=== PATIENT | female | born 1980 | race Caucasian/White ===

== ENCOUNTER 2016-09-05 18:20 | Emergency (ER) | payer BC ==
[~2016-09-05] VITALS: Ht 177.8 cm; Wt 60.0 kg
[~2016-09-05 18:20] MED LIST: METR-1 PO
[2016-09-05 18:22] VITALS: BP 134/81; PULSE 73; RESP 15; TEMP 98.1; O2SAT 97
[2016-09-05] MEDS ORDERED: SODIUM CHLOR 0.9% 1000 ML INJ 1,000 ML IV ONE (18:56)
[2016-09-05] MEDS ORDERED: METOCLOPRAMIDE HCL 10 MG/2 ML VIAL IVP ONE (19:00)
[2016-09-05] MEDS ORDERED: diphenhydrAMINE HCL 50 MG/ML VIAL IVP ONE (19:00)
[2016-09-05] MEDS ORDERED: KETOROLAC TROMETHAMINE 30 MG/ML (IVP) VIAL IVP ONE (19:00)
[2016-09-05 19:25] LABS: AUTOMATED NEUTROPHIL # 5.1 TH/MM3 (1.8-7.7); BASOPHIL % 0.5 % (0.0-2.0); EOSINOPHIL # 0.2 TH/MM3 (0-0.4); EOSINOPHIL % 2.2 % (0.0-4.0); HEMATOCRIT 40.5 % (35.0-46.0); HEMO FLAGS DIFF FINAL; LYMPH % 26.4 % (9.0-44.0); LYMPHOCYTE # 2.1 TH/MM3 (1.0-4.8); MEAN CELL VOLUME 94.5 FL (80.0-100.0); MEAN CORPUSCULAR HEMOGLOBIN 32.2 PG (27.0-34.0); MEAN CORPUSCULAR HGB CONC 34.1 % (32.0-36.0); MONO % 7.8 % (0.0-8.0); NEUT % 63.1 % (16.0-70.0); PLATELET COUNT 178 TH/MM3 (150-450); RED BLOOD COUNT 4.29 MIL/MM3 (4.00-5.30); RED CELL DISTRIBUTION WIDTH 13.8 % (11.6-17.2); WHITE BLOOD COUNT 8.1 TH/MM3 (4.0-11.0)
--- NOTE | 2016-09-05 19:53 | PD ---
HPI Chief Complaint: Headache Time Seen by Provider: 19:49 Travel History International Travel<30 days: No Contact w/Intl Traveler<30days: No Traveled to known affect area: No History of Present Illness HPI 36-year-old female that presents to the ED for evaluation of headache and inflamed lymph node on her right neck. Patient states that the inflamed lymph node has been there for a couple years. Per patient he comes and goes. Per patient today with the headache seems to be worsening. Per patient's been taking Motrin with minimal relief of the headache. Per patient she has a headache that feels like a pressure like a band on her head mainly on the left occipital head as well as on the right forehead. Per patient he feels like there is pressure behind the eyes. She states that she has photophobia. Denies any blurry vision or loss of vision. She denies any chest pain or shortness of breath. Denies any fevers chills or sweats. No runny nose or congestion. Denies . No allergies to medication. She has no seen anybody for this. She does state having a history of headaches in the past but nothing like this before. Per patient the pain is 7 out of 10. Nothing makes it better. Light makes it worse however. She denies any nausea or vomiting. no Abdominal pain. No urinary or bowel movement issues. PFSH Past Medical History Medical History: Denies Significant Hx Diabetes: No Diminished Hearing: No Tetanus Vaccination: > 5 Years Influenza Vaccination: No ?: Not LMP: 08/2016 : 3 Para: 3 Ovarian Cysts: Yes Past Surgical History Gynecologic Surgery: Yes (cryo) Other Surgery: Yes (BREAST AUGMENTATION) Social History Alcohol Use: Yes (OCCASS) Tobacco Use: No Substance Use: No Allergies-Medications (Allergen,Severity, Reaction): Coded Allergies: No Known Allergies (Verified , 09/05/16) Reported Meds & Prescriptions Reported Meds & Active Scripts Active Diclofenac Sodium DR (Diclofenac Sodium) 75 Mg Tabdr 75 Mg PO BID PRN Prochlorperazine Maleate 10 Mg Tab 10 Mg PO Q6H PRN Review of Systems Except as stated in HPI: all other systems reviewed are Neg Physical Exam Narrative GENERAL: SKIN: Warm and dry. HEAD: Atraumatic. Normocephalic. EYES: Pupils equal and round 4 mm reactive to light and accommodation. No scleral icterus. No injection or drainage. ENT: No nasal bleeding or discharge. Mucous membranes pink and moist. Tongue is midline. No uvula deviation. Tonsils not enlarged or swollen. TMs are clear without sign of infection or perforation. No mastoid tenderness. Patient does have what appears to be a small inflamed lymph node on the right anterior cervical node which is slightly tender. Mobile. Hard to the touch. NECK: Trachea midline. No JVD. CARDIOVASCULAR: Regular rate and rhythm. No murmurs, S3, S4. RESPIRATORY: No accessory muscle use. Clear to auscultation. Breath sounds equal bilaterally. GASTROINTESTINAL: Abdomen soft, non-tender, nondistended. Hepatic and splenic margins not palpable. MUSCULOSKELETAL: Extremities without clubbing, cyanosis, or edema. No obvious deformities. Full range of motion of the upper and lower extremities bilaterally. 2+ pulses bilaterally. NEUROLOGICAL: Awake and alert. No obvious cranial nerve deficits. Motor grossly within normal limits. Five out of 5 muscle strength in the arms and legs. Normal speech. PSYCHIATRIC: Appropriate mood and affect; insight and judgment normal. Data Data Last Documented VS Vital Signs Date Time Temp Pulse Resp B/P Pulse Ox O2 Delivery O2 Flow Rate FiO2 09/05/16 20:30 84 16 134/78 99 Room Air 09/05/16 18:22 98.1 Orders Complete Blood Count With Diff (09/05/16 18:56) Basic Metabolic Panel (Bmp) (09/05/16 18:56) Ct Brain W/O Iv Contrast(Rout) (09/05/16 18:56) Iv Access Insert/Monitor (09/05/16 18:56) Ketorolac Inj (Toradol Inj) (09/05/16 19:00) Diphenhydramine Inj (Benadryl Inj) (09/05/16 19:00) Metoclopramide Inj (Reglan Inj) (09/05/16 19:00) Sodium Chlor 0.9% 1000 Ml Inj (Ns 1000 M (09/05/16 18:56) Influenzae A/B Antigen (09/05/16 18:56) Ed Urine Pregnancytest Poc (09/05/16 19:10) Electrocardiogram (09/05/16 21:03) Potassium, Serum (K) (09/05/16 21:03) Labs Laboratory Tests Test 09/05/16 09/05/16 19:00 21:10 White Blood Count 8.1 TH/MM3 Red Blood Count 4.29 MIL/MM3 Hemoglobin 13.8 GM/DL Hematocrit 40.5 % Mean Corpuscular Volume 94.5 FL Mean Corpuscular Hemoglobin 32.2 PG Mean Corpuscular Hemoglobin 34.1 % Concent Red Cell Distribution Width 13.8 % Platelet Count 178 TH/MM3 Mean Platelet Volume 11.3 FL Neutrophils (%) (Auto) 63.1 % Lymphocytes (%) (Auto) 26.4 % Monocytes (%) (Auto) 7.8 % Eosinophils (%) (Auto) 2.2 % Basophils (%) (Auto) 0.5 % Neutrophils # (Auto) 5.1 TH/MM3 Lymphocytes # (Auto) 2.1 TH/MM3 Monocytes # (Auto) 0.6 TH/MM3 Eosinophils # (Auto) 0.2 TH/MM3 Basophils # (Auto) 0.0 TH/MM3 CBC Comment DIFF FINAL Differential Comment Sodium Level 137 MEQ/L Potassium Level 5.7 MEQ/L 4.2 MEQ/L Chloride Level 105 MEQ/L Carbon Dioxide Level 23.6 MEQ/L Anion Gap 8 MEQ/L Blood Urea Nitrogen 11 MG/DL Creatinine 0.68 MG/DL Estimat Glomerular Filtration 99 ML/MIN Rate Random Glucose 78 MG/DL Calcium Level 8.7 MG/DL [facility] Medical Decision Making Medical Screen Exam Complete: Yes Emergency Medical Condition: Yes Medical Record Reviewed: Yes Interpretation(s) CBC & BMP Diagram 09/05/16 19:[address] 09/05/16 [id number] Signed Impressions: Service Date/Time: Monday, September 05, 2016 20:06 - CONCLUSION: Unremarkable CT brain. Navi Wade MD influenza negative recheck k was normal Differential Diagnosis Migraine headache versus tension headache versus sinus headache versus lymphadenopathy versus infection versus sinusitis Narrative Course 36-year-old female that presents to the ED for evaluation of headache and inflamed lymph node. Patient was properly examined and was found to have signs and symptoms consistent with appears to be likely tension headache versus migraine headache. I also inflamed lymph node. Patient has never had headaches like this before. Lymph node has been ongoing problem and I do not believe the patient has an acute from this. Labs and imaging as well as pain medication. Patient agrees first to proceed. Labs and imaging showed no sign of acute disease. Patient was reassessed and does feel improved. Case was discussed with my attending Dr. Tavarez evaluated the patient with me and recommends discharge. Patient will be discharged with diclofenac sodium and Compazine for his headache. Patient was told to follow up with PCP. See ED for worsening symptoms. Diagnosis Primary Impression: Headache Qualified Code: G44.209 - Acute non intractable tension-type headache Additional Impression: Lymph nodes enlarged Patient Instructions: General Instructions Additional Instructions: Motrin or Tylenol for pain. Take medication only for approximately needed. See ED if worsening symptoms. Follow-up with PCP. Med/Other Pt SpecificInfo: Prescription(s) given Scripts Diclofenac Sodium DR 75 Mg Tabdr75 Mg PO BID PRN (PAIN SCALE 1 TO 10) #20 TAB Prov:Sharath Guan MD 09/05/16 Prochlorperazine Maleate 10 Mg Tab10 Mg PO Q6H PRN (HEADACHE) #15 TAB Ref 0 Prov:Sharath Guan MD 09/05/16 Disposition: 01 DISCHARGE HOME Condition: Stable Chalo Beyer Sep 05, 2016 19:53
--- NOTE | 2016-09-05 20:28 | RADRPT ---
EXAM DATE/TIME: 09/05/2016 20:06 [facility] COMPARISON: No previous studies available for comparison. INDICATIONS : Headache,swollen lymph nodes ,pain left occipital an right forehead,pressure behind eyes. RADIATION DOSE: 56.36 CTDIvol (mGy) MEDICAL HISTORY : None SURGICAL HISTORY : None. ENCOUNTER: Initial ACUITY: 2 days PAIN SCALE: 7/10 LOCATION: cranial TECHNIQUE: Multiple contiguous axial images were obtained of the head. Using automated exposure control and adj ustment of the mA and/or kV according to patient size, radiation dose was kept as low as reasonably a chievable to obtain optimal diagnostic quality images. FINDINGS: CEREBRUM: The ventricles are normal for age. No evidence of midline shift, mass lesion, hemorrhage or acute in farction. No extra-axial fluid collections are seen. POSTERIOR FOSSA: The cerebellum and brainstem are intact. The 4th ventricle is midline. The cerebellopontine angle i s unremarkable. EXTRACRANIAL: The visualized portion of the orbits is intact. SKULL: The calvaria is intact. No evidence of skull fracture. CONCLUSION: Unremarkable CT brain. Navi Wade MD on September 05, 2016 at 20:27 Board Certified Radiologist. This report was verified electronically.
[2016-09-05 20:29] LABS: BICARBONATE 23.6 MEQ/L (21.0-32.0); POTASSIUM 5.7 MEQ/L (3.5-5.1)
[2016-09-05 20:30] VITALS: BP 134/78; PULSE 84; RESP 16; O2SAT 99
[2016-09-05] MEDS ORDERED: PROC10TA PO (22:11)
[2016-09-05] MEDS ORDERED: DICL75TA PO (22:11)
--- NOTE | 2016-09-07 07:00 | EKG ---
Date Performed: 09/05/2016 Time Performed: 21:38:27 PTAGE: 36 years EKG: Sinus rhythm NORMAL ECG NO PREVIOUS TRACING DOCTOR: Anupam Beebe Interpretating Date/Time 09/07/2016 06:58:16
== END 2016-09-05 22:37 | disposition home or self-care (01) ==
LOC: NEPE 18:20
DX: R51 Headache (principal); I88.9 Nonspecific lymphadenitis, unspecified
CPT/HCPCS: 70450; 80048; 84132; 84703; 85025; 87804; 93005; 96361; 96374; 96375; 99284; J1200; J1885; J2765; J7030

== ENCOUNTER 2017-02-12 17:22 | Emergency (ER) | payer BC ==
[~2017-02-12] VITALS: Ht 177.8 cm; Wt 59.5 kg
[~2017-02-12 17:22] MED LIST changes: +DICL75TA PO; -METR-1 PO; +PROC10TA PO
[2017-02-12 17:39] VITALS: BP 109/70; PULSE 74; RESP 15; TEMP 98.5; O2SAT 99
[2017-02-12] MEDS ORDERED: cefTRIAXone 250 MG VIAL IM ONE (18:45)
[2017-02-12] MEDS ORDERED: LIDOCAINE HCL 1% 50 ML VIAL IM ONE (18:45)
[2017-02-12] MEDS ORDERED: AZITHROMYCIN PWD FOR SUSP 1 GM PACKET PO ONE (18:45)
--- NOTE | 2017-02-12 18:45 | PD ---
HPI Chief Complaint: Lard Maker Problem/Complaint Time Seen by Provider: 18:37 Travel History International Travel<30 days: No Contact w/Intl Traveler<30days: No Traveled to known affect area: No History of Present Illness HPI 36-year-old female presents with vaginal discharge and odor over the past couple of days. She denies any specific sharp pain, vomiting, fever or other concurrent complaints. She states multiple years ago in her 20s she had chlamydia and this seems similar in smell. She states the discharge is foul smelling. She notes one partner that she believes cheated on her and she did not use protection. She states no recent intercourse as this was maybe a couple weeks or month or so ago. She states her last menstrual cycle was 2 weeks ago. PFSH Past Medical History Diabetes: No Diminished Hearing: No ?: Not : 3 Para: 3 Ovarian Cysts: Yes Past Surgical History Gynecologic Surgery: Yes (cryo) Other Surgery: Yes (BREAST AUGMENTATION) Social History Alcohol Use: Yes (OCCASS) Tobacco Use: No Substance Use: No Allergies-Medications (Allergen,Severity, Reaction): Coded Allergies: No Known Allergies (Verified , 02/12/17) Reported Meds & Prescriptions Reported Meds & Active Scripts Active No Active Prescriptions or Reported Medications Review of Systems Except as stated in HPI: all other systems reviewed are Neg Physical Exam Narrative GENERAL: Well-nourished, well-developed patient. Well-appearing SKIN: Warm and dry. HEAD: Normocephalic and atraumatic. EYES: No injection or drainage. ENT: No nasal drainage noted. NECK: Supple, trachea midline. CARDIOVASCULAR: Regular rate and rhythm RESPIRATORY: No increased effort. No accessory muscle use. GASTROINTESTINAL: Abdomen soft, non-tender, nondistended. EXTREMITIES: No edema. GENITOURINARY: Normal external genitalia without lesions or erythema. Vaginal vault with moderate amount of white drainage. Cervical os was closed without drainage. Uterus nontender, Bilateral adnexa nontender NEUROLOGICAL: Awake and alert. Motor and sensory grossly within normal limits. Normal speech. Data Data Last Documented VS Vital Signs Date Time Temp Pulse Resp B/P Pulse Ox O2 Delivery O2 Flow Rate FiO2 02/12/17 17:39 98.5 74 15 109/70 99 Orders Gc And Chlamydia Pcr (02/12/17 18:41) Wet Prep Profile (7/11/17 18:41) Azithromycin Powd Pack (Zithromax Powd P (02/12/17 18:45) Ceftriaxone Inj (Rocephin Inj) (02/12/17 18:45) Lidocaine 1% Inj (50 Ml) (Xylocaine 1% I (02/12/17 18:45) Ed Urine Pregnancytest Poc (02/12/17 18:41) MDM Medical Decision Making Medical Screen Exam Complete: Yes Emergency Medical Condition: Yes Medical Record Reviewed: Yes (past history confirmed) Differential Diagnosis Cervicitis, PID, yeast infection Narrative Course Will check wet prep, gonorrhea and chlamydia and dose with Rocephin and azithromycin given risk factors. Physician Communication Physician Communication dr mancini to follow beta and wet prep and reeval Scripts No Active Prescriptions or Reported Meds Naty Cuadra MD Feb 12, 2017 18:45
[2017-02-12] MEDS ORDERED: METR-1 PO (19:13)
--- NOTE | 2017-02-12 19:13 | PD ---
Data Data Last Documented VS Vital Signs Date Time Temp Pulse Resp B/P Pulse Ox O2 Delivery O2 Flow Rate FiO2 02/12/17 17:39 98.5 74 15 109/70 99 Orders Gc And Chlamydia Pcr (02/12/17 18:41) Wet Prep Profile (02/12/17 18:41) Azithromycin Powd Pack (Zithromax Powd P (02/12/17 18:45) Ceftriaxone Inj (Rocephin Inj) (02/12/17 18:45) Lidocaine 1% Inj (50 Ml) (Xylocaine 1% I (02/12/17 18:45) Ed Urine Pregnancytest Poc (02/12/17 18:41) Labs Laboratory Tests Test 02/12/17 18:45 Clue Cells (Wet Prep) PRESENT Vaginal Trichomonas (Wet Prep) NONE SEEN Vaginal Yeast (Wet Prep) NONE SEEN MDM Supervised Visit with MARIIA: No Narrative Course This patient was seen primarily by Dr. Cuadra. I was asked to follow-up her wet prep. Patient has evidence of clue cells consistent with bacterial vaginosis. She will be discharged with Flagyl and can followed as an outpatient with her sericulture teacher. Diagnosis Primary Impression: Bacterial vaginosis Patient Instructions: General Instructions Additional Instruction: If you develop fever, chills, severe abdominal pain, persistent vomiting or inability to eat return to the emergency department. Your pelvic exam today did not include a Pap smear. It is important to followup with a sericulture teacher on a yearly basis to be tested for cervical cancer as we do not do that from the emergency department. If there is a concern that you have sexually transmitted disease, your partner should be tested. You should followup with your sericulture teacher or with the health department to get tested for other sexually transmitted diseases like HIV and syphilis, as we do not test for these in the emergency department Med/Other Pt SpecificInfo: Prescription(s) given Scripts Metronidazole (Flagyl)500 Mg [id number] Mg PO BID 7 Days Prov:Joana Alvarez MD 02/12/17 Disposition: 01 DISCHARGE HOME Condition: Stable Joana Alvarez MD Feb 12, 2017 19:13
[2017-02-12 19:45] VITALS: BP 108/60; PULSE 62; RESP 18; TEMP 98.1; O2SAT 99
[2017-02-12 22:17] LABS: CHLAMYDIA PCR NOT DETECTED (NOT DETECT); NEISSERIA PCR NOT DETECTED (NOT DETECT)
== END 2017-02-12 20:07 | disposition home or self-care (01) ==
LOC: PHED 17:22
DX: N76.0 Acute vaginitis (principal)
CPT/HCPCS: 84703; 87210; 87491; 87591; 96372; 99284; J0696